=== PATIENT | female | born 2000 | race Caucasian/White ===

== ENCOUNTER 2019-02-25 20:48 | Inpatient (IN) | payer OTHER ==
[~2019-02-25 20:48] MED LIST: PROMETHAZINE HC25 M1 PO; VITAFOL-OB+DHA1 EACH PO
--- NOTE | 2019-02-26 07:19 | PR ---
[facility] [address] [place], [place] [address] Signed PP Progress Notes Datetime Report Generated by QAINA: 02/26/2019 07:18 SUBJECTIVE: [id number] Pain: Within normal limits Vital Signs: [id number] Vital Signs: Reviewed; Within Normal Limits EXAM: [id number] Cardiovascular: Not Done Respiratory: Not Done Abdomen/Uterus: Abnormal Lochia: Normal Vulva/Perineum: Not Done Breasts: Not Done CVA Tenderness: Not Done Extremities: Normal Incision: Not Applicable Progress: Normal Exam Comments: Fundus firm, NT @ U-2 AM labs still pending IMPRESSION/PLAN/PROCEDURES: [id number] Impression: Normal progression Plan: Continue present management Procedures: None Progress Notes: Doing well though am labs still pending. Signing Physician: Jody Edwards MD Copies: ~ *Electronically Signed* 02/26/19717 JODY EDWARDS MD PATIENT NAME: HOLA BRANNON PROGRESS NOTE DATE OF : 89 PHYSICIAN: JODY EDWARDS MD RPT #: [id number] REPORT IS CONFIDENTIAL AND NOT TO BE RELEASED WITHOUT AUTHORIZATION
--- NOTE | 2019-02-27 12:13 | PR ---
[facility] [address] [place], [place] [address] Signed PP Progress Notes Datetime Report Generated by CPN: 02/27/2019 12:13 SUBJECTIVE: [id number] Pain: Within normal limits Nausea/Vomiting: Denies Vital Signs: [id number] Vital Signs: Reviewed; Within Normal Limits Notable Details: PP Hgb/Hct = 10.96/32.4 EXAM: [id number] Cardiovascular: Not Done Respiratory: Not Done Abdomen/Uterus: Normal Lochia: Normal Vulva/Perineum: Not Done Breasts: Not Done CVA Tenderness: Not Done Extremities: Normal Incision: Not Applicable Progress: Normal Exam Comments: Fundus firm, NT @ U-2 AM labs still pending IMPRESSION/PLAN/PROCEDURES: [id number] Impression: Normal progression Plan: Discharge Procedures: None Progress Notes: Doing well, without complaint, ready to go home later today. Signing Physician: Anders Carver MD Copies: ~ *Electronically Signed* 02/27/19 1213 ANDERS CARVER MD PATIENT NAME: CLOVISHOLAERASTO PARRAE PROGRESS NOTE DATE OF : 98 PHYSICIAN: ANDERS CARVER MD RPT #: [id number] REPORT IS CONFIDENTIAL AND NOT TO BE RELEASED WITHOUT AUTHORIZATION
== END 2019-02-27 19:30 | disposition home or self-care (01) | DRG 768 ==
LOC: FBCO 20:48 → FBC 21:15
PROVIDERS: ADMIT Obstetrics & Gynecology
PROC: 10E0XZZ Delivery of Products of Conception, External Approach (ICD-10-PCS; principal; 2019-02-25)
PROC: 0UQJXZZ Repair Clitoris, External Approach (ICD-10-PCS; 2019-02-25)
PROC: 10907ZC Drainage of Amniotic Fluid, Therapeutic from Products of Conception, Via Natural or Artificial Opening (ICD-10-PCS; 2019-02-25)
DX: O62.3 Precipitate labor (principal); Z37.0 Single live birth; O99.324 Drug use complicating childbirth; Z3A.38 38 weeks gestation of pregnancy; O71.89 Other specified obstetric trauma; F12.90 Cannabis use, unspecified, uncomplicated; O99.334 Smoking (tobacco) complicating childbirth; F17.210 Nicotine dependence, cigarettes, uncomplicated
CPT/HCPCS: 36415; 85027; 99406; J2590; J7120

== ENCOUNTER 2019-07-29 05:52 | Emergency (ER) | payer OTHER ==
[~2019-07-29] VITALS: Ht 162.6 cm; Wt 56.7 kg
[2019-07-29] MEDS ORDERED: AMOXICILLIN500 MG PO (06:25)
== END 2019-07-29 06:43 | disposition home or self-care (01) ==
LOC: ED 05:52
DX: H66.91 Otitis media, unspecified, right ear (principal); F17.200 Nicotine dependence, unspecified, uncomplicated
CPT/HCPCS: 99282

== ENCOUNTER 2020-03-29 22:31 | Emergency (ER) | payer OTHER ==
[~2020-03-29] VITALS: Ht 162.6 cm; Wt 56.7 kg
[~2020-03-29 22:31] MED LIST changes: +AMOXICILLIN500 MG PO
[2020-03-29] MEDS ORDERED: KEFLEX500 MG PO (22:55)
== END 2020-03-29 23:07 | disposition home or self-care (01) ==
LOC: ED 22:31
DX: T63.441A Toxic effect of venom of bees, accidental (unintentional), initial encounter (principal); F17.200 Nicotine dependence, unspecified, uncomplicated
CPT/HCPCS: 99282

== ENCOUNTER 2021-09-14 22:09 | Emergency (ER) | payer OTHER ==
[~2021-09-14] VITALS: Ht 162.6 cm; Wt 50.0 kg
[~2021-09-14 22:09] MED LIST changes: +KEFLEX500 MG PO
== END 2021-09-15 00:57 | disposition home or self-care (01) ==
LOC: ED 22:09
PROC: 0HQ7XZZ Repair Abdomen Skin, External Approach (ICD-10-PCS; principal; 2021-09-14)
DX: O9A.211 Injury, poisoning and certain other consequences of external causes complicating pregnancy, first trimester (principal); S31.119A Laceration without foreign body of abdominal wall, unspecified quadrant without penetration into peritoneal cavity, initial encounter; O99.331 Smoking (tobacco) complicating pregnancy, first trimester; F17.200 Nicotine dependence, unspecified, uncomplicated; Z3A.10 10 weeks gestation of pregnancy; W18.12XA Fall from or off toilet with subsequent striking against object, initial encounter
CPT/HCPCS: 12001; 80048; 81001; 85025; 99284-25

== ENCOUNTER 2021-09-26 00:45 | Emergency (ER) | payer OTHER ==
[~2021-09-26] VITALS: Ht 162.6 cm; Wt 52.2 kg
--- OUTSIDE RECORDS SUMMARY | 2021-09-26 00:52 | XMS ---
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 Elaina VISIT COUNT (12 MO.) 2 [facility] TOTAL 2 NOTE: Visits indicate total known visits. ED/UCC VISIT TRACKING (12 MO.) 09/26/2021 00:46 [facility] TYPE: Emergency COMPLAINT: - POSS MISCARRIAGE 09/14/2021 22:10 [facility] TYPE: Emergency COMPLAINT: - RT SIDE PAIN, LACERATION, 10 WEEKS PREG DIAGNOSES: - Fall from or off toilet with subsequent striking against object, initial encounter - Smoking (tobacco) complicating , first trimester - 10 weeks gestation of - Unspecified injury of abdomen, initial encounter - Nicotine dependence, unspecified, uncomplicated - Injury, poisoning and certain other consequences of external causes complicating , first trimester - Laceration without foreign body of abdominal wall, unspecified quadrant without penetration into peritoneal cavity, initial encounter INPATIENT VISIT TRACKING (12 MO.) No inpatient visits to display in this time frame [email or web address]
== END 2021-09-26 07:25 | disposition home or self-care (01) ==
LOC: ED 00:45
DX: O20.9 Hemorrhage in early pregnancy, unspecified (principal); O99.331 Smoking (tobacco) complicating pregnancy, first trimester; F17.200 Nicotine dependence, unspecified, uncomplicated; Z3A.01 Less than 8 weeks gestation of pregnancy
CPT/HCPCS: 76801; 76817; 80048; 81001; 84702; 85025; 86900; 99284-25

== ENCOUNTER 2021-10-03 18:56 | Emergency (ER) | payer OTHER ==
[~2021-10-03] VITALS: Ht 162.6 cm; Wt 51.1 kg
--- OUTSIDE RECORDS SUMMARY | 2021-10-03 19:04 | XMS ---
PreManage Notification: HOLA BRANNON Security Mill [employer] Events No recent Security Events currently on file CRITERIA MET - [facility] - 2 Visits in 30 Days CARE PROVIDERS TAD HAYWARD Physician President Practicing Urologist Current PHONE: [phone] Kalee has no Care Guidelines for this patient. Elaina VISIT COUNT (12 MO.) 3 [facility] TOTAL 3 NOTE: Visits indicate total known visits. ED/UCC VISIT TRACKING (12 MO.) 10/03/2021 18:57 [facility] TYPE: Emergency COMPLAINT: - VAGINAL BLEEDING, POSS MISCARRIAGE 09/26/2021 00:46 [facility] TYPE: Emergency COMPLAINT: - POSS MISCARRIAGE DIAGNOSES: - Less than 8 weeks gestation of - Hemorrhage in early , unspecified - Nicotine dependence, unspecified, uncomplicated - Smoking (tobacco) complicating , first trimester - Abnormal uterine and vaginal bleeding, unspecified 09/14/2021 22:10 [facility] TYPE: Emergency [...] visits to display in this time frame [email or web address]
== END 2021-10-03 22:11 | disposition home or self-care (01) ==
LOC: ED 18:56
DX: O03.9 Complete or unspecified spontaneous abortion without complication (principal); F17.200 Nicotine dependence, unspecified, uncomplicated
CPT/HCPCS: 36415; 76801; 76817; 80048; 84702; 85025; 86900; 99284-25; J7030

== ENCOUNTER 2021-12-13 09:41 | Emergency (ER) | payer OTHER ==
[~2021-12-13] VITALS: Ht 162.6 cm; Wt 50.8 kg
== END 2021-12-13 11:43 | disposition home or self-care (01) ==
LOC: ED 09:41
DX: B37.3 Candidiasis of vulva and vagina (principal); F17.200 Nicotine dependence, unspecified, uncomplicated
CPT/HCPCS: 87210; 99283